=== PATIENT | male | born 1975 | race Caucasian/White ===

== ENCOUNTER 2016-06-07 18:07 | Emergency (ER) | payer SELFPAY ==
[~2016-06-07] VITALS: Ht 177.8 cm; Wt 97.1 kg
[2016-06-07 18:31] VITALS: BP 142/96
--- NOTE | 2016-06-07 19:40 | NUR ---
PATIENT TO ER BED 7.
--- NOTE | 2016-06-07 19:47 | NUR ---
PT IS 40/M BIB TO ED WITH C/O ABSCESS TO LEFT TESTICLE, REDNESS, SWELLING X 2 WKS AND PAIN UPON AMBULATING. PT DENIES MED HX.. DENIES N/D; SKIN IS PINK/WARM/DRY; AAOX4 WITH EVEN AND STEADY GAIT; LUNGS CLEAR BL; HR EVEN AND REGULAR; PT DENIES ANY FEVER, CP, SOB, OR COUGH AT THIS TIME; PATIENT STATES PAIN OF 10/10 AT THIS TIME; VSS; PATIENT POSITIONED FOR COMFORT; HOB ELEVATED; BEDRAILS UP X2; BED DOWN. ER MD MADE AWARE OF PT STATUS.
--- NOTE | 2016-06-07 19:58 | NUR ---
Patient being evaluated by physician at bedside.
[2016-06-07] MEDS ORDERED: LIDOCAINE 1% 500 MG/50 ML VIAL INJ ONE (20:05)
[2016-06-07] MEDS ORDERED: fentaNYL 0.05 MG/ML VIAL IM ONE (20:30)
[2016-06-07] MEDS ORDERED: CLINDAMYCIN 150 MG CAP PO ONE (21:20)
[2016-06-07] MEDS ORDERED: HYDROcodone/APAP 5/325 MG 1 TAB TAB PO ONE (21:20)
[2016-06-07 21:45] VITALS: BP 129/88
--- NOTE | 2016-06-07 21:45 | NUR ---
Patient discharged with v/s stable. Written and verbal after care instructions given and explained. Patient alert, oriented and verbalized understanding of instructions. Ambulatory with steady gait. All questions addressed prior to discharge. ID band removed. Patient advised to follow up with PMD. Rx of CLINDAMYCIN, NORCO AND MOTRIN given. Patient educated on indication of medication including possible reaction and side effects. Opportunity to ask questions provided and answered.
== END 2016-06-07 21:45 | disposition home or self-care (01) ==
LOC: MED 18:07
DX: N49.2 Inflammatory disorders of scrotum (principal); Z88.5 Allergy status to narcotic agent
CPT/HCPCS: 55100; 76870; 90471; 90715; 96372; 99284; J2001; J3010; Q0092

== ENCOUNTER 2016-06-09 16:09 | Emergency (ER) | payer SELFPAY ==
[~2016-06-09] VITALS: Ht 180.3 cm; Wt 98.9 kg
[2016-06-09 16:13] VITALS: BP 139/64
--- NOTE | 2016-06-09 20:18 | NUR ---
TO ER BED 6
--- NOTE | 2016-06-09 20:19 | NUR ---
40 Y/O M FO F/U ON WOUND LACED X FRIDAY. DENIES ANY FEVER OR CHILLS. STILL C/O DIARRHEA. NO S/S OF DISTRESS NOTED. ER MADE AWARE.
[2016-06-09] MEDS ORDERED: BACITRACIN OINT 500 UNITS/GM PKT TP ONE (21:31)
[2016-06-09 21:35] VITALS: BP 132/72
--- NOTE | 2016-06-09 21:35 | NUR ---
DPatient discharged with v/s stable. Written and verbal after care instructions given and explained. Patient verbalized understanding. Ambulatory with steady gait. All questions addressed prior to discharge. Advised to follow up with PMD IN 2 DAYS OR RETURN TO ER IF CONDITION WORSENS.
== END 2016-06-09 21:35 | disposition home or self-care (01) ==
LOC: MED 16:09
DX: Z48.00 Encounter for change or removal of nonsurgical wound dressing (principal); N49.2 Inflammatory disorders of scrotum; Z88.5 Allergy status to narcotic agent
CPT/HCPCS: 99283